=== PATIENT | male | born 1970 | race Asian ===

== ENCOUNTER 2018-01-27 04:50 | Inpatient (IN) | payer MEDICAID, OTHER ==
[~2018-01-27] VITALS: Ht 170.2 cm; Wt 68.0 kg
[2018-01-27] MEDS ORDERED: IPRAHFA IH (05:09)
[2018-01-27] MEDS ORDERED: LORA2TAB2 PO (05:09)
[2018-01-27] MEDS ORDERED: METF500T4 PO (05:09)
[2018-01-27 05:42] LABS: BASOPHILS % (AUTO) 0.4 % (0.0-2.0); EOSINOPHILS % (AUTO) 0.7 % (1.0-6.0); HEMATOCRIT 40.1 % (41-53); HEMOGLOBIN 13.6 g/dL (13.5-17.5); LYMPHOCYTES # (AUTO) 1.3 K/uL (1.0-4.8); LYMPHOCYTES % (AUTO) 13.7 % (22.0-44.0); MEAN CORPUSCULAR HEMOGLOBIN 32.4 pg (26.0-34.0); MEAN CORPUSCULAR VOLUME 95 fL (80-100); MONOCYTES # (AUTO) 0.7 K/uL (0.1-1.0); MONOCYTES % (AUTO) 7.3 % (2.0-9.0); NEUTROPHILS # (AUTO) 7.2 K/uL (1.8-7.7); NEUTROPHILS % (AUTO) 77.9 % (40.0-70.0); PLATELET COUNT (AUTO) 272 K/uL (150-450); RED BLOOD CELL COUNT(AUTO) 4.21 MIL/uL (4.50-5.90); RED CELL DISTRIBUTION WIDTH 13.5 % (11.5-14.5)
[2018-01-27 05:45] LABS: INR 0.9 (0.9-1.1); PROTHROMBIN TIME 9.7 SEC (9.4-11.6)
[2018-01-27 05:52] LABS: ANION GAP 9 mmol/L (8-16); CARBON DIOXIDE 29 mmol/L (22-29); CHLORIDE 101 mmol/L (98-107); CREATININE 0.67 mg/dL (0.60-1.30); GLOMERULAR FILTR. RATE CALC > 60 mL/min (>60); GLUCOSE,RANDOM 114 mg/dL (70-110); POTASSIUM 3.6 mmol/L (3.5-5.1); SODIUM SERUM 139 mmol/L (136-145); UREA NITROGEN, BLOOD 15 mg/dL (7-18)
[2018-01-27 05:59] LABS: ALANINE AMINOTRANSFERASE 31 U/L (12-78); ALBUMIN 4.1 g/dL (3.4-5.0); ALKALINE PHOSPHATASE 97 U/L (46-116); ASPARTATE AMINOTRANSFERASE 17 U/L (15-37); BILIRUBIN,TOTAL 0.3 mg/dL (0.1-1.0); TOTAL PROTEIN, SERUM 7.5 g/dL (6.4-8.2)
[2018-01-27 06:28] LABS: B-TYPE NATRIURETIC PEPTIDE 6 pg/mL (0-100)
[2018-01-27 07:45] LABS: APPEARANCE,URINE CLEAR (CLEAR); BILIRUBIN,URINE NEGATIVE (NEGATIVE); GLUCOSE, URINE (UA) NEGATIVE (NEGATIVE); KETONES,URINE NEGATIVE (NEGATIVE); LEUKOCYTE ESTERASE ,URINE NEGATIVE (NEGATIVE); NITRATE,URINE NEGATIVE (NEGATIVE); OCCULT BLOOD,URINE NEGATIVE (NEGATIVE); PH,URINE 6.5 (5.0-8.0); PROTEIN,URINE NEGATIVE (NEGATIVE); UROBILINOGEN,URINE 0.2 mg/dL (<=1.0)
[2018-01-27] MEDS ORDERED: DiphenhydrAMINE HCL 25 MG CAPSULE PO ONE (09:15)
[2018-01-27] MEDS ORDERED: HALOPERIDOL 5 MG TABLET PO ONE (09:15)
[2018-01-27] MEDS ORDERED: LORazepam 2 MG TABLET PO ONE (09:15)
[2018-01-27] MEDS ORDERED: HALOPERIDOL 1 MG TABLET PO PRN (09:45)
[2018-01-27 10:11] LABS: AMPHET/METH SCREEN,URINE NEGATIVE (NEGATIVE); BARBITURATE SCREEN, URINE NEGATIVE (NEGATIVE); BENZODIAZEPINES SCREEN,URINE NEGATIVE (NEGATIVE); CANNABINOID SCREEN,URINE NEGATIVE (NEGATIVE); COCAINE SCREEN,URINE POSITIVE (NEGATIVE); METHADONE SCREEN, URINE NEGATIVE (NEGATIVE); OPIATE SCREEN,URINE NEGATIVE (NEGATIVE); PHENCYCLIDINE SCREEN,URINE NEGATIVE (NEGATIVE)
[2018-01-27 12:04] VITALS: BP 118/78
[2018-01-27] MEDS ORDERED: PNEUMOCOCCAL VACCINE POLYVALENT 0.5 ML VIAL [PPSV23] IM ONE (13:15)
[2018-01-27] MEDS ORDERED: INFLUENZA VIRUS VACCINE QVS 2017-18 (3YR+)/PF 60 MCG/0.5 ML SYRINGE IM ONE (13:15)
[2018-01-27 14:42] LABS: GLUCOMETER DEV NAME(LOC) BV2N3; GLUCOSE,POINT OF CARE 104 MG/DL (70-110)
[2018-01-27 16:00] VITALS: BP 108/70
[2018-01-28 02:28] VITALS: BP 105/82
[2018-01-28] MEDS: LORazepam 2 MG TABLET PO PRN ×2 (02:33→16:27)
[2018-01-28] MEDS: DiphenhydrAMINE HCL 25 MG CAPSULE PO PRN (02:33)
[2018-01-28 08:21] VITALS: BP 117/84
[2018-01-28] MEDS: BuPROPion HCL XL 150 MG ER TABLET PO SCH (09:42)
[2018-01-28] MEDS ORDERED: IPRATROPIUM BROMIDE HFA 17 MCG/PUFF 12.9 GM INHALER IH PRN (14:30)
[2018-01-28] MEDS ORDERED: ACETAMINOPHEN 325 MG TABLET PO PRN (14:30)
[2018-01-28] MEDS: MetFORMIN HCL 500 MG TABLET PO SCH (16:27)
[2018-01-28 16:30] VITALS: BP 120/76
[2018-01-28] MEDS: IBUPROFEN 400 MG TABLET PO PRN (16:30)
[2018-01-28] MEDS ORDERED: QUEtiapine FUMARATE 200 MG TABLET PO SCH (21:00)
[2018-01-28] MEDS: QUEtiapine FUMARATE 300 MG TABLET PO SCH (21:43)
[2018-01-29 05:53] VITALS: BP 107/71
[2018-01-29] MEDS: MetFORMIN HCL 500 MG TABLET PO SCH ×2 (07:22→18:08)
[2018-01-29 08:08] LABS: GLUCOMETER DEV NAME(LOC) BV2N3; GLUCOSE,POINT OF CARE 157 MG/DL (70-110)
[2018-01-29 08:37] VITALS: BP 114/65
[2018-01-29] MEDS: IBUPROFEN 400 MG TABLET PO PRN ×2 (08:38→18:13)
[2018-01-29] MEDS: BuPROPion HCL XL 150 MG ER TABLET PO SCH (08:38)
[2018-01-29] MEDS: LORazepam 2 MG TABLET PO PRN ×2 (08:38→20:18)
[2018-01-29 17:40] VITALS: BP 117/80
[2018-01-29] MEDS: QUEtiapine FUMARATE 300 MG TABLET PO SCH (20:18)
[2018-01-30 06:38] VITALS: BP 112/68
[2018-01-30] MEDS: MetFORMIN HCL 500 MG TABLET PO SCH ×2 (06:48→16:25)
[2018-01-30 08:30] VITALS: BP 112/82
[2018-01-30] MEDS: BuPROPion HCL XL 150 MG ER TABLET PO SCH (08:42)
[2018-01-30] MEDS: IBUPROFEN 400 MG TABLET PO PRN ×2 (08:56→21:45)
[2018-01-30 09:57] VITALS: BP 115/86
[2018-01-30] MEDS: LORazepam 2 MG TABLET PO PRN ×2 (13:51→21:16)
[2018-01-30 16:18] VITALS: BP_SYST 117; BP_SYST 136; BP_DIAS 74; BP_DIAS 88
[2018-01-30 16:31] LABS: GLUCOMETER DEV NAME(LOC) BV2N3; GLUCOSE,POINT OF CARE 159 MG/DL (70-110)
[2018-01-30] MEDS: DiphenhydrAMINE HCL 25 MG CAPSULE PO PRN (20:15)
[2018-01-30] MEDS: QUEtiapine FUMARATE 300 MG TABLET PO SCH (20:15)
[2018-01-30 21:43] VITALS: BP 119/78
[2018-01-31 06:34] VITALS: BP 104/68
[2018-01-31] MEDS: MetFORMIN HCL 500 MG TABLET PO SCH ×2 (06:49→16:43)
[2018-01-31 08:38] VITALS: BP 107/71
[2018-01-31] MEDS: BuPROPion HCL XL 150 MG ER TABLET PO SCH (09:12)
[2018-01-31 16:52] VITALS: BP 121/76
[2018-01-31] MEDS: LORazepam 2 MG TABLET PO PRN (17:18)
[2018-01-31] MEDS: DiphenhydrAMINE HCL 25 MG CAPSULE PO PRN (18:24)
[2018-01-31] MEDS: IBUPROFEN 400 MG TABLET PO PRN (18:24)
[2018-01-31 18:25] VITALS: BP 117/75
[2018-01-31] MEDS: QUEtiapine FUMARATE 200 MG TABLET PO SCH (20:30)
[2018-02-01 06:42] VITALS: BP 120/82
[2018-02-01] MEDS: MetFORMIN HCL 500 MG TABLET PO SCH ×2 (06:49→16:51)
[2018-02-01] MEDS: LORazepam 2 MG TABLET PO PRN ×3 (08:29→17:15)
[2018-02-01] MEDS: BuPROPion HCL XL 150 MG ER TABLET PO SCH (08:29)
[2018-02-01] MEDS: IBUPROFEN 400 MG TABLET PO PRN ×2 (08:29→16:52)
[2018-02-01 08:31] VITALS: BP 117/77
[2018-02-01] MEDS: DiphenhydrAMINE HCL 25 MG CAPSULE PO PRN (20:13)
[2018-02-01] MEDS: QUEtiapine FUMARATE 200 MG TABLET PO SCH (20:13)
[2018-02-02] MEDS: MetFORMIN HCL 500 MG TABLET PO SCH ×2 (06:45→16:19)
[2018-02-02 07:02] LABS: GLUCOMETER DEV NAME(LOC) BV2N3; GLUCOSE,POINT OF CARE 101 MG/DL (70-110)
[2018-02-02 07:17] VITALS: BP 114/69
[2018-02-02] MEDS: BuPROPion HCL XL 150 MG ER TABLET PO SCH (08:55)
[2018-02-02 09:05] VITALS: BP 102/70
[2018-02-02] MEDS: LORazepam 2 MG TABLET PO PRN ×2 (10:58→16:19)
[2018-02-02 16:26] LABS: GLUCOMETER DEV NAME(LOC) BV2N3; GLUCOSE,POINT OF CARE 204 MG/DL (70-110)
[2018-02-02 16:33] VITALS: BP 112/85
[2018-02-02] MEDS: DiphenhydrAMINE HCL 25 MG CAPSULE PO PRN (20:00)
[2018-02-02] MEDS: QUEtiapine FUMARATE 200 MG TABLET PO SCH (20:00)
[2018-02-03 06:32] LABS: GLUCOMETER DEV NAME(LOC) BV2N3; GLUCOSE,POINT OF CARE 109 MG/DL (70-110)
[2018-02-03] MEDS: MetFORMIN HCL 500 MG TABLET PO SCH ×2 (06:38→16:27)
[2018-02-03 06:45] VITALS: BP 115/82
[2018-02-03] MEDS: BuPROPion HCL XL 150 MG ER TABLET PO SCH (08:01)
[2018-02-03 08:15] VITALS: BP 109/72
[2018-02-03] MEDS: LORazepam 2 MG TABLET PO PRN ×3 (08:59→18:23)
[2018-02-03] MEDS: IBUPROFEN 400 MG TABLET PO PRN (08:59)
[2018-02-03 10:00] VITALS: BP 112/76
[2018-02-03 16:29] LABS: GLUCOMETER DEV NAME(LOC) BV2N3; GLUCOSE,POINT OF CARE 161 MG/DL (70-110)
[2018-02-03 16:44] VITALS: BP 121/79
[2018-02-03] MEDS: QUEtiapine FUMARATE 200 MG TABLET PO SCH (20:13)
[2018-02-03] MEDS: DiphenhydrAMINE HCL 25 MG CAPSULE PO PRN (20:13)
[2018-02-04 06:11] VITALS: BP 104/65
[2018-02-04 06:22] LABS: GLUCOMETER DEV NAME(LOC) BV2N3; GLUCOSE,POINT OF CARE 92 MG/DL (70-110)
[2018-02-04] MEDS: MetFORMIN HCL 500 MG TABLET PO SCH ×2 (06:42→16:24)
[2018-02-04 08:28] VITALS: BP 106/72
[2018-02-04] MEDS: BuPROPion HCL XL 150 MG ER TABLET PO SCH (08:36)
[2018-02-04] MEDS: LORazepam 2 MG TABLET PO PRN ×2 (15:03→20:54)
[2018-02-04 16:22] LABS: GLUCOMETER DEV NAME(LOC) BV2N3; GLUCOSE,POINT OF CARE 107 MG/DL (70-110)
[2018-02-04 16:48] VITALS: BP 111/68
[2018-02-04 17:36] VITALS: BP 120/80
[2018-02-04] MEDS: IBUPROFEN 400 MG TABLET PO PRN (17:36)
[2018-02-04] MEDS: QUEtiapine FUMARATE 200 MG TABLET PO SCH (20:06)
[2018-02-04] MEDS: DiphenhydrAMINE HCL 25 MG CAPSULE PO PRN (20:07)
[2018-02-05 02:30] VITALS: BP 100/69
[2018-02-05 06:23] LABS: GLUCOMETER DEV NAME(LOC) BV2N3; GLUCOSE,POINT OF CARE 98 MG/DL (70-110)
[2018-02-05] MEDS: MetFORMIN HCL 500 MG TABLET PO SCH ×2 (06:51→16:22)
[2018-02-05 08:14] VITALS: BP 106/76
[2018-02-05] MEDS: IBUPROFEN 400 MG TABLET PO PRN ×2 (08:32→18:23)
[2018-02-05] MEDS: BuPROPion HCL XL 150 MG ER TABLET PO SCH (08:32)
[2018-02-05] MEDS: LORazepam 2 MG TABLET PO PRN ×3 (08:32→18:51)
[2018-02-05 09:31] VITALS: BP 112/74
[2018-02-05 17:27] LABS: GLUCOMETER DEV NAME(LOC) BV2N3; GLUCOSE,POINT OF CARE 159 MG/DL (70-110)
[2018-02-05 18:23] VITALS: BP 110/80
[2018-02-05 18:28] VITALS: BP 115/81
[2018-02-05] MEDS: QUEtiapine FUMARATE 300 MG TABLET PO SCH (20:09)
[2018-02-05] MEDS: DiphenhydrAMINE HCL 25 MG CAPSULE PO PRN (20:09)
[2018-02-06 05:53] LABS: GLUCOMETER DEV NAME(LOC) BV2N3; GLUCOSE,POINT OF CARE 99 MG/DL (70-110)
[2018-02-06] MEDS: MetFORMIN HCL 500 MG TABLET PO SCH ×2 (06:18→16:21)
[2018-02-06 07:18] VITALS: BP 110/71
[2018-02-06 08:28] VITALS: BP 103/70
[2018-02-06] MEDS: IBUPROFEN 400 MG TABLET PO PRN ×2 (08:49→16:36)
[2018-02-06] MEDS: BuPROPion HCL XL 150 MG ER TABLET PO SCH (08:49)
[2018-02-06] MEDS: LORazepam 2 MG TABLET PO PRN ×3 (08:49→18:50)
[2018-02-06] MEDS: DiphenhydrAMINE HCL 25 MG CAPSULE PO PRN ×2 (12:53→20:20)
[2018-02-06 16:36] VITALS: BP 112/73
[2018-02-06 16:37] LABS: GLUCOMETER DEV NAME(LOC) BV2N3; GLUCOSE,POINT OF CARE 127 MG/DL (70-110)
[2018-02-06] MEDS: QUEtiapine FUMARATE 300 MG TABLET PO SCH (20:13)
[2018-02-07] MEDS: MetFORMIN HCL 500 MG TABLET PO SCH ×2 (07:00→17:03)
[2018-02-07 07:11] VITALS: BP 105/78
[2018-02-07 08:34] VITALS: BP 120/80
[2018-02-07] MEDS: BuPROPion HCL XL 150 MG ER TABLET PO SCH (08:57)
[2018-02-07 13:47] LABS: GLUCOMETER DEV NAME(LOC) BV2N3; GLUCOSE,POINT OF CARE 88 MG/DL (70-110)
[2018-02-07 16:18] LABS: GLUCOMETER DEV NAME(LOC) BV2N3; GLUCOSE,POINT OF CARE 155 MG/DL (70-110)
[2018-02-07 16:40] VITALS: BP 122/75
[2018-02-07 18:44] VITALS: BP 120/79
[2018-02-07] MEDS: IBUPROFEN 400 MG TABLET PO PRN (18:44)
[2018-02-07] MEDS: LORazepam 2 MG TABLET PO PRN (18:44)
[2018-02-07] MEDS: QUEtiapine FUMARATE 300 MG TABLET PO SCH (20:15)
[2018-02-08 06:17] LABS: GLUCOMETER DEV NAME(LOC) BV2N3; GLUCOSE,POINT OF CARE 88 MG/DL (70-110)
[2018-02-08 06:38] VITALS: BP 114/66
[2018-02-08] MEDS: MetFORMIN HCL 500 MG TABLET PO SCH ×2 (07:04→16:52)
[2018-02-08 08:42] VITALS: BP 106/75
[2018-02-08] MEDS: BuPROPion HCL XL 150 MG ER TABLET PO SCH (08:46)
[2018-02-08] MEDS: IBUPROFEN 400 MG TABLET PO PRN ×2 (08:51→20:20)
[2018-02-08] MEDS: LORazepam 2 MG TABLET PO PRN ×3 (08:51→21:33)
[2018-02-08 09:52] VITALS: BP 120/78
[2018-02-08 16:05] VITALS: BP 113/81
[2018-02-08 16:57] LABS: GLUCOMETER DEV NAME(LOC) BV2N3; GLUCOSE,POINT OF CARE 193 MG/DL (70-110)
[2018-02-08] MEDS: DiphenhydrAMINE HCL 25 MG CAPSULE PO PRN (20:20)
[2018-02-08] MEDS: QUEtiapine FUMARATE 300 MG TABLET PO SCH (20:20)
[2018-02-09] MEDS: MetFORMIN HCL 500 MG TABLET PO SCH ×2 (06:30→16:14)
[2018-02-09 06:33] LABS: GLUCOMETER DEV NAME(LOC) BV2N3; GLUCOSE,POINT OF CARE 101 MG/DL (70-110)
[2018-02-09 06:53] VITALS: BP 106/66
[2018-02-09] MEDS: BuPROPion HCL XL 150 MG ER TABLET PO SCH (08:44)
[2018-02-09 08:49] VITALS: BP 120/70
[2018-02-09] MEDS: IBUPROFEN 400 MG TABLET PO PRN (14:10)
[2018-02-09 16:11] VITALS: BP 108/84
[2018-02-09] MEDS: LORazepam 2 MG TABLET PO PRN (16:14)
[2018-02-09 16:37] LABS: GLUCOMETER DEV NAME(LOC) BV2N3; GLUCOSE,POINT OF CARE 135 MG/DL (70-110)
[2018-02-09] MEDS: DiphenhydrAMINE HCL 25 MG CAPSULE PO PRN (19:59)
[2018-02-09] MEDS: QUEtiapine FUMARATE 300 MG TABLET PO SCH (20:12)
[2018-02-10] MEDS: MetFORMIN HCL 500 MG TABLET PO SCH ×2 (06:36→16:24)
[2018-02-10 06:38] LABS: GLUCOMETER DEV NAME(LOC) BV2N3; GLUCOSE,POINT OF CARE 88 MG/DL (70-110)
[2018-02-10 06:57] VITALS: BP 102/63
[2018-02-10 08:24] VITALS: BP 109/72
[2018-02-10] MEDS: BuPROPion HCL XL 150 MG ER TABLET PO SCH (08:58)
[2018-02-10 16:07] VITALS: BP 118/78
[2018-02-10] MEDS: LORazepam 2 MG TABLET PO PRN (16:26)
[2018-02-10 16:27] LABS: GLUCOMETER DEV NAME(LOC) BV2N3; GLUCOSE,POINT OF CARE 137 MG/DL (70-110)
[2018-02-10] MEDS: QUEtiapine FUMARATE 300 MG TABLET PO SCH (20:36)
[2018-02-10 20:37] VITALS: BP 125/70
[2018-02-10] MEDS: IBUPROFEN 400 MG TABLET PO PRN (20:37)
[2018-02-10 21:25] VITALS: BP 115/80
[2018-02-10] MEDS: DiphenhydrAMINE HCL 25 MG CAPSULE PO PRN (21:25)
[2018-02-11] VITALS: BP 102/74
[2018-02-11] MEDS: MetFORMIN HCL 500 MG TABLET PO SCH ×2 (06:56→16:35)
[2018-02-11 08:33] VITALS: BP 106/64
[2018-02-11] MEDS: BuPROPion HCL XL 150 MG ER TABLET PO SCH (08:41)
[2018-02-11 10:39] VITALS: BP 112/71
[2018-02-11] MEDS: DiphenhydrAMINE HCL 25 MG CAPSULE PO PRN ×2 (10:39→20:10)
[2018-02-11] MEDS: IBUPROFEN 400 MG TABLET PO PRN ×2 (10:39→18:55)
[2018-02-11] MEDS: LORazepam 2 MG TABLET PO PRN ×2 (10:39→15:55)
[2018-02-11 16:00] VITALS: BP 107/66
[2018-02-11 16:13] LABS: GLUCOMETER DEV NAME(LOC) BV2N3; GLUCOSE,POINT OF CARE 113 MG/DL (70-110)
[2018-02-11 18:55] VITALS: BP 112/68
[2018-02-11] MEDS: QUEtiapine FUMARATE 300 MG TABLET PO SCH (20:10)
[2018-02-12 05:45] VITALS: BP 101/69
[2018-02-12] MEDS: MetFORMIN HCL 500 MG TABLET PO SCH (07:08)
[2018-02-12 07:22] LABS: GLUCOMETER DEV NAME(LOC) BV2N3; GLUCOSE,POINT OF CARE 88 MG/DL (70-110)
[2018-02-12 08:58] VITALS: BP 100/68
[2018-02-12] MEDS: BuPROPion HCL XL 150 MG ER TABLET PO SCH (09:10)
[2018-02-12] MEDS ORDERED: BUPR-47 PO (09:43)
[2018-02-12] MEDS ORDERED: QUET300T18 PO (09:43)
[2018-02-12] MEDS ORDERED: QUET300T2 PO (10:14)
[2018-02-12] MEDS ORDERED: BUPR-93 PO ×2 (10:14→10:30)
[2018-02-12] MEDS ORDERED: QUET200T PO (10:29)
== END 2018-02-12 16:45 | disposition home or self-care (01) | DRG 750 ==
LOC: EMS 04:52 → B2S 10:13
PROC: 3E0234Z Introduction of Serum, Toxoid and Vaccine into Muscle, Percutaneous Approach (ICD-10-PCS; principal; 2018-01-27)
PROC: 3E0234Z Introduction of Serum, Toxoid and Vaccine into Muscle, Percutaneous Approach (ICD-10-PCS; 2018-01-27)
DX: F20.0 Paranoid schizophrenia (principal); E11.9 Type 2 diabetes mellitus without complications; F14.10 Cocaine abuse, uncomplicated; Z59.0 Homelessness; J45.909 Unspecified asthma, uncomplicated; Z87.891 Personal history of nicotine dependence; Z79.899 Other long term (current) drug therapy; Z23 Encounter for immunization; Z88.0 Allergy status to penicillin
CPT/HCPCS: 82962; 83036; 90471; 93005; 99285

== ENCOUNTER 2018-01-29 14:44 | Emergency (ER) | payer MEDICAID, OTHER ==
[~2018-01-29] VITALS: Ht 167.6 cm; Wt 65.9 kg
[~2018-01-29 14:44] MED LIST: IPRAHFA IH; LORA2TAB2 PO; METF500T4 PO
[2018-01-29 16:47] VITALS: BP 135/72
[2018-01-29 17:23] LABS: GLUCOSE,POINT OF CARE 133 MG/DL (70-110)
== END 2018-01-29 17:12 | disposition home or self-care (01) ==
LOC: EMS 14:46
DX: S63.501A Unspecified sprain of right wrist, initial encounter (principal); S20.211A Contusion of right front wall of thorax, initial encounter; E11.9 Type 2 diabetes mellitus without complications; J44.9 Chronic obstructive pulmonary disease, unspecified; F41.9 Anxiety disorder, unspecified; F20.0 Paranoid schizophrenia; F17.210 Nicotine dependence, cigarettes, uncomplicated; Z88.0 Allergy status to penicillin; X58.XXXA Exposure to other specified factors, initial encounter; Y93.89 Activity, other specified; Y92.89 Other specified places as the place of occurrence of the external cause; Y99.8 Other external cause status
CPT/HCPCS: 71046; 82962; 99284